=== PATIENT | male | born 1995 | race Caucasian/White ===

== ENCOUNTER 2024-05-19 16:18 | Emergency (ER) | payer SELFPAY ==
--- NOTE | 2024-05-19 16:27 | XR_ITS ---
PROCEDURE INFORMATION: Exam: XR Left Knee Exam date and time: 05/19/2024 4:26 PM Age: 28 years old Clinical indication: Injury or trauma; Fall; Blunt trauma; Lower leg; Left; Additional info: Injury, fell into door frame, pain TECHNIQUE: Imaging protocol: Radiologic exam of the left knee. Views: 1 or 2 views. COMPARISON: No relevant prior studies available. FINDINGS: Bones/joints: No evidence of acute fracture or malalignment. No knee joint effusion. Soft tissues: Unremarkable. IMPRESSION: No evidence of acute osseous abnormality in the left knee. PROCEDURE INFORMATION: Exam: XR Left Tibia and Fibula Exam date and time: 05/19/2024 4:26 PM Age: 28 years old Clinical indication: Injury or trauma; Fall; Blunt trauma; Lower leg; Left; Additional info: Injury, fell into door frame, pain TECHNIQUE: Imaging protocol: Radiologic exam of the left tibia and fibula. Views: 2 views. COMPARISON: No relevant prior studies available. FINDINGS: Bones/joints: No evidence of acute fracture or malalignment. Soft tissues: Unremarkable. IMPRESSION: No evidence of acute osseous abnormality in the left tibia or fibula.
[2024-05-19 16:40] VITALS: BP 157/103; PULSE 80; RESP 21; TEMP 37.2; O2SAT 95; BMI 24.3
[2024-05-19 17:00] VITALS: BP 135/83
--- NOTE | 2024-05-19 17:02 | ED_ITS ---
Discharge Plan Disposition Patient Disposition: Home, Self-Care Condition: Good Prescriptions Prescriptions: No Action No Known Home Medications Referrals Follow up/Referrals: Provider,Referral, MD [Primary Care Provider] - See instructions Activity Restrictions/Add. Instructions Additional Instructions/Restrictions: *weight bearing as tolerated *RICE, Rest the extremity, Ice 15-20 minutes 3-4 times daily, Compress- wear the tae wrap as discussed as much as possible to help reduce swelling and pain, Elevate the extremity when at rest *Tae wrap is for support and help control swelling, use it except in the shower. Be sure that is not to tight but not to loose either *Elevate when resting? *Ibuprofen 600-800mg every 6-8 hours as needed for pain an inflammation. If need something more can take Tylenol in between doses of Ibuprofen to help Immediately follow up with your family doctor for new or worsening of symptoms, or no noticeable improvement over the next 3-5 days Clinical Impressions Clinical Impression: Contusion of left lower extremity Qualifiers: Encounter type: initial encounter Qualified Code(s): S80.12XA - Contusion of left lower leg, initial encounter Instructions Patient Instructions: Contusion, DI for Contusion Print Language Print Language: French Discharge ED Provider: Kathrin Garcia [facility] [place] HPI General Stated complaint: AO 05/18/24 1630 injury left leg Mode of Arrival: Ambulatory Source of Information: Patient Limitations: No Limitations Time Seen by Provider: 05/19/24 17:02 Description of Symptoms (Recalled from Triage Doc. by RN): PATIENT C/O INJURY TO LEFT LOWER LEG AFTER HE WAS HIT IN THE LEG BY A DOOR YESTERDAY EVENING HEENT Symptoms (Recalled from RN notes): No Resp Symptoms (Recalled from RN notes): No Skin Symptoms (Recalled from RN notes): No MS Symptoms (Recalled from RN notes): Yes Functional Status (Recalled from RN notes): WNL History of Present Illness Provider Complaint: Patient states that he was playing with his dog and slipped and his lower leg hit the door frame States he has been having bruising and swelling in his eric area ever since and hurts when he touches it so he came in to get it checked Denies any other injury Related Data Home Medications ?Medication ?Instructions ?Recorded ?Confirmed No Known Home Medications 05/19/24 05/19/24 Allergies Allergy/AdvReac Type Severity Reaction Status Date / Time amoxicillin [From Augmentin] Allergy Anaphylaxis Verified 05/19/24 16:51 clavulanic acid Allergy Anaphylaxis Verified 05/19/24 16:51 [From Augmentin] Penicillins Allergy Anaphylaxis Verified 05/19/24 16:51 Worker's Comp Is this a Worker's Comp case?: No [facility] Disclaimer: The information contained in this section may have been updated after the patient was seen, as this information can be updated by other users. Surgical History (Updated 05/19/24 @ 16:51 by Nadia Osborne RN) History of knee replacement Social History Smoking Status: Unknown if ever smoked alcohol intake: never current occupational status: employed Travel in the last 8 weeks: None ROS Obtained: Yes All systems reviewed & no additional complaints except as documented and Yes Systems reviewed as appropriate & no additional complaints except as documented Constitutional Constitutional: Reports system reviewed and no additional complaints, except as documented and Reports as per HPI ENT Ears, Nose, Mouth, and Throat: Reports system reviewed and no additional complaints, except as documented and Reports as per HPI Cardiovascular Cardiovascular: Reports system reviewed and no additional complaints, except as documented and Reports as per HPI Respiratory Respiratory: Reports system reviewed and no additional complaints, except as documented and Reports as per HPI Gastrointestinal Gastrointestingal: Reports system reviewed and no additional complaints, except as documented and as per HPI Musculoskeletal Musculoskeletal: Reports system reviewed and no additional complaints, except as documented, Reports as per HPI and Reports other (pain in his left eric area after hitting it on door frame) Physical Exam General General appearance: alert and in no apparent distress ENT ENT exam: Present mucous membranes moist Respiratory Respiratory exam: Present normal lung sounds bilaterally; Absent respiratory distress or wheezes Cardiovascular Cardiovascular exam: Present regular rate, normal rhythm and normal heart sounds Expanded Lower Extremity Exam Left: Leg image: 2 1. bruising and mild swelling noted no open wounds Knee exam: Present normal inspection Lower leg exam: Present tenderness, swelling and ecchymosis Ankle exam: Present normal inspection Foot/toe exam: Present normal inspection Neurovascular/Tendon exam: Present normal capillary refill Gait: observed and limited by pain Neurological Exam Neurological exam: Present alert, oriented X3 and normal gait Medical Decision Making Medical Records Screening: Per USPSTF and CDC recommendations, given the prevalence of disease in our region, it is our hospital?s policy to screen for HIV and viral Hepatitis for all patients aged 18 and over and those with ongoing risk factors. [place] Inquiry Pt receiving controlled substance: No Santiago was queried for this patient: No Vital Signs: 05/19/24 16:40 Temperature 98.9 F Temperature Source Oral Pulse Rate [Left Brachial] 80 Respiratory Rate 21 Blood Pressure [Left Arm] 157/103 H Blood Pressure Mean [Left Arm] 121 Blood Pressure Source [Left Arm] Automatic Cuff Blood Pressure Position [Left Arm] Sitting 02 Sat by Pulse Oximetry 95 Oxygen Delivery Method Room Air Orders (Tests/Meds): ORDERS Category Date Time Status Tibia/fibula XR left 2 views [XR tibia fibula LT 2V] Exams 05/19/24 16:27 Taken Stat Radiology Data #1: Image(s): Tib/Fib Image Reviewed: Yes I have reviewed radiologist's interpretation IMPRESSION: No evidence of acute osseous abnormality in the left tibia or fibula.
[2024-05-19 18:21] VITALS: BP 135/83; PULSE 80; RESP 21; TEMP 37.2; O2SAT 95
== END 2024-05-19 18:24 | disposition home or self-care (01) ==
PROVIDERS: Emergency Provider Nurse Practitioner
DX: S80.12XA Contusion of left lower leg, initial encounter (principal); W22.8XXA Striking against or struck by other objects, initial encounter
CPT/HCPCS: 73590; 99213; G0381